=== PATIENT | female | born 1980 | race Caucasian/White ===

== ENCOUNTER → 2020-09-22 | Outpatient (CLI) | payer BC, SELFPAY ==
[2020-09-22 08:50] LABS: Absolute Lymphocyte Count 1.28 X10^3/uL (0.83-4.51); Absolute Neutrophil Count 2.9 X10^3/uL (2.0-7.7); Basophil# 0.04 X10^3/uL; Basophil% 0.9 % (0-1); Eosinophil# 0.07 X10^3/uL; Eosinophils% 1.5 % (0-5); Hematocrit 41.4 % (37-47); Hemoglobin 13.2 g/dL (12.0-15.0); Lymphocyte # 1.28 X10^3/ul (4.0); Lymphocyte % 27.2 % (19-41); Mean Corp Hgb Conc 31.9 g/dL (32-36); Mean Corpuscular Hgb 26.3 pg (27.0-32.0); Mean Corpuscular Volume 82.6 fL (81-99); Mean Platelet Vol. 10.3 fl (6.2-12.0); Monocyte# 0.36 X10^3/uL; Monocyte% 7.7 % (0-10); NRBC Flagged by Analyzer 0 % (0-5); Neutrophil # 2.92 X10^3/uL (2.7-7.7); Neutrophil % 62.1 % (47-70); Platelet Count 268 K/mm3 (150-450); RBC Distribution Width CV 13.9 % (11.6-14.6); RBC Distribution Width SD 41.9 fl (35.1-43.9); Red Blood Count 5.01 M/mm3 (4.2-5.4); White Blood Count 4.7 K/mm3 (4.4-11.0)
[2020-09-22 10:09] LABS: ALB/GLOB Ratio 0.9 RATIO (0.9-2.4); AST(SGOT) 16 U/L (15-37); Alanine Aminotransfer ALT/SGPT 26 U/L (13-56); Albumin, Serum 3.7 g/dL (3.2-5.0); Alkaline Phosphatase 89 U/L (45-117); Anion Gap 5 (5-15); BUN 9 mg/dL (7-18); BUN/Creat Ratio 12.5 RATIO (10-20); Calcium,Total 8.8 mg/dL (8.5-10.1); Chloride 105 mmol/L (98-107); Cholesterol 177 mg/dL (200); Creatinine, Serum 0.72 mg/dL (0.55-1.02); EST Glomerular Filtration Rate 95 mL/min (>60); Est Glom Filt Rate - Afr Amer 115 mL/min (>60); Estradiol 45.2 pg/mL; Globulin 4.1 g/dL (2.2-4.2); Glucose 87 mg/dL (74-106); High Density Lipoprotein 63 mg/dL; Potassium 3.9 mmol/L (3.5-5.1); Protein, Total 7.8 g/dL (6.4-8.2); Sodium Level 138 mmol/L (136-145); Thyroid Stim Hormone (TSH) 1.22 uIU/mL (0.358-3.74); Triglycerides 83 mg/dL; Very Low Density Lipoprotein 17 mg/dL (5-40)
== END | disposition home or self-care (01) ==
LOC: LAB 08:37 → LABSPEC 08:59
PROVIDERS: Referring Provider Nurse Practitioner Family; Visit Provider Nurse Practitioner Family
DX: N92.6 Irregular menstruation, unspecified (principal); Z13.220 Encounter for screening for lipoid disorders; Z13.1 Encounter for screening for diabetes mellitus; R79.89 Other specified abnormal findings of blood chemistry
CPT/HCPCS: 36415; 80053; 80061; 82670; 84403; 84443; 85025

== ENCOUNTER → 2020-10-09 14:07 | Outpatient (CLI) | payer BC, SELFPAY ==
--- NOTE | 2020-10-09 14:09 | US_ITS ---
STUDY: ULTRASOUND OF THE FEMALE PELVIS - COMPLETE REASON FOR EXAM: Female, 40 years old. IRREGULAR CYCLES -- FAMILY HX OF CERVICAL AND OV CA LMP: 08/22/2020. TECHNIQUE: Transabdominal and Transvaginal TECHNICAL QUALITY: Adequate. COMPARISON: None. FINDINGS: The uterus is anteverted and is in a midline position. The uterus measures 10.4 cm x 6.3 cm x 5 cm. There is a Nabothian cyst of the cervix. The endometrium measures 12 mm in thickness, and is hyperechoic. There is no demonstrated endometrial mass. There is no demonstrated myometrial mass. I.U.D. - The patient does not have an I.U.D. The right ovary is visualized. The right ovary measures 3.4 cm x 3 cm x 2.6 cm. There is no right ovarian cyst or ovarian mass. There is no visualized right adnexal mass or complex lesion. There is normal arterial and normal venous vascularity. The left ovary is visualized. The left ovary measures 3 cm x 3 cm x 2.6 cm. There is no left ovarian cyst or ovarian mass. There is no visualized left adnexal mass or complex lesion. There is normal arterial and normal venous vascularity. There is no fluid in the cul-de-sac. The pre void volume of the bladder was 277 ml. Polycystic ovary disease: No. US/Pelvic (Non ) IMPRESSION: Normal female pelvis. Electronically Signed: Lucio Montague MD at 15:23 EST , Service support ,
--- NOTE | 2020-10-09 14:11 | US_ITS ---
STUDY: ULTRASOUND OF THE FEMALE PELVIS - COMPLETE REASON FOR EXAM: Female, 40 years old. IRREGULAR CYCLES -- FAMILY HX OF CERVICAL AND OV CA LMP: 08/22/2020. TECHNIQUE: Transabdominal and Transvaginal TECHNICAL QUALITY: Adequate. COMPARISON: None. FINDINGS: The uterus is anteverted and is in a midline position. The uterus measures 10.4 cm x 6.3 cm x 5 cm. There is a Nabothian cyst of the cervix. The endometrium measures 12 mm in thickness, and is hyperechoic. There is no demonstrated endometrial mass. There is no demonstrated myometrial mass. I.U.D. - The patient does not have an I.U.D. The right ovary is visualized. The right ovary measures 3.4 cm x 3 cm x 2.6 cm. There is no right ovarian cyst or ovarian mass. There is no visualized right adnexal mass or complex lesion. There is normal arterial and normal venous vascularity. The left ovary is visualized. The left ovary measures 3 cm x 3 cm x 2.6 cm. There is no left ovarian cyst or ovarian mass. There is no visualized left adnexal mass or complex lesion. There is normal arterial and normal venous vascularity. There is no fluid in the cul-de-sac. The pre void volume of the bladder was 277 ml. Polycystic ovary disease: No. US/Transvaginal Non- IMPRESSION: Normal female pelvis. Electronically Signed: Lucio Montague MD at 15:23 EST , Service support ,
--- NOTE | 2020-10-09 15:04 | BI_ITS ---
MAMMOGRAPHY - BILATERAL SCREENING REASON FOR EXAM: Female, 40 years old. Routine annual screening examination. PERTINENT HISTORY: Grandmother with breast cancer. TECHNIQUE: Digital bilateral breast louise (3D mammographic acquisition) in the CC and MLO projections. 2-D mediolateral oblique (MLO) and craniocaudad (CC) views of both breasts were obtained. CAD: Full Field Digital Mammography with Computer Added Detection was performed. COMPARISON: None. Baseline examination. FINDINGS: Breast Composition: There are scattered areas of fibroglandular density. There are no dominant masses or suspicious calcifications. No other significant abnormalities are identified. BI/SCRN MAMM (CAD)W/LOUISE BILAT IMPRESSION: Negative screening mammogram. Yearly followup mammogram recommended. (A) ASSESSMENT CATEGORY: BIRADS Category 1: Negative. A letter regarding these results will be sent to the patient by the facility within 30 days. Approximately 10% of breast cancers are not detected by mammography. A normal mammogram should not delay biopsy of a clinically suspicious abnormality. [id number] Electronically Signed: Lucio Montague MD at 8:14 EST , Service support ,
== END ==
PROVIDERS: PCP Nurse Practitioner Family; Referring Provider Nurse Practitioner Family; Visit Provider Nurse Practitioner Family
DX: Z12.31 Encounter for screening mammogram for malignant neoplasm of breast (principal); N92.6 Irregular menstruation, unspecified; Z80.41 Family history of malignant neoplasm of ovary
CPT/HCPCS: 76830; 76856; 77063; 77067

== ENCOUNTER → 2021-01-16 07:59 | Outpatient (REF) | payer SELFPAY ==
[2021-01-16 09:07] LABS: Hepatitis B Surf AB - EMP Reactive
== END ==
LOC: EMPH 07:59
DX: Z00.00 Encounter for general adult medical examination without abnormal findings (principal)
CPT/HCPCS: 36415; 86706

== ENCOUNTER 2021-05-16 09:56 | Emergency (ER) | payer BC, SELFPAY ==
[2021-05-16 09:56] VITALS: BP 192/106; PULSE 73; RESP 18; TEMP 36.6; O2SAT 99; BMI 43.9
[2021-05-16 10:04] VITALS: BP 150/93; PULSE 82; RESP 19
--- NOTE | 2021-05-16 10:10 | EKG12_ITS ---
Test Reason : DIZZINESS Blood Pressure : / mmHG Vent. Rate : 077 BPM Atrial Rate : 077 BPM P-R Int : 142 ms QRS Dur : 140 ms QT Int : 448 ms P-R-T Axes : 044 074 026 degrees QTc Int : 506 ms Normal sinus rhythm with sinus arrhythmia Right bundle branch block Abnormal ECG Confirmed by ERAN KHANNA, JAVON ([id number]), tape editor MONROE REYNA ([id number]) on 05/21/2021 7:29:06 AM Referred By: ELIER Confirmed By:JAVON BARILLAS MD
--- NOTE | 2021-05-16 10:11 | EX.ED.DYSGE1 ---
HPI History of Present Illness Chief Complaint: Dizziness Informant: patient Narrative Narrative: Patient presents for evaluation of acute onset of lightheaded symptoms after going to break at 9:15 AM today. 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 Denies any syncopal episodes. States her last 2 days transient dull chest discomfort lasting seconds that would resolve had symptoms this morning. Occasional cough. Denied dyspnea palpitations orthopnea. Denies any past medical history. Denies family history of MIs at a young age. No tobacco history. States saw PCP a month ago for acute onset of darkened skin to the legs treated for cellulitis which is improving. No recent vomiting or diarrhea. No urinary symptoms. Denies history of stress test in the past. States symptoms currently resolving. Denies any spinning sensations. Prior similar symptoms: No PFSH PFSH Medical History no medical history Home Medications NK 05/16/21 [History Last Taken Unknown] Allergy/AdvReac Type Severity Reaction Status Date / Time No Known Allergies Allergy Verified 05/16/21 09:58 Family History no significant family his Surgical History no surgical history Social History Smoking Status: Former smoker ROS ROS ED Constitutional Constitutional ED: Denies chills, fever(s) or sweats Eyes Eyes: Denies change in vision ENT ENT ED: Denies dysphagia or sore throat Cardiovascular Cardiovascular: Reports chest pain; Denies leg edema, palpitations or racing heartbeat Respiratory/Chest Respiratory/Chest: Denies cough, dyspnea or dyspnea on exertion Gastrointestinal Gastrointestinal: Denies abdominal pain, diarrhea, nausea or vomiting Genitourinary Genitourinary ED: Denies dysuria, hematuria or urinary frequency Musculoskeletal Musculoskeletal: Denies back pain, extremity pain or neck pain Integumentary Denies rash or wounds Neurologic Neurologic: Denies headache(s), paresthesias or weakness EXAM Physical Exam Const Vital Signs: 05/16/21 09:56 05/16/21 10:04 05/16/21 10:13 Temperature 97.8 F Temperature Source Temporal Pulse Rate 73 82 Respiratory Rate 18 19 H Respiratory Effort Normal Non-Labored Respiratory Pattern Normal Blood Pressure 192/106 H 150/93 H Blood Pressure Mean 134 112 Pulse Ox 99 Oxygen Delivery Method Room Air Room Air Room Air 05/16/21 12:00 05/16/21 13:59 Temperature Temperature Source Pulse Rate 70 88 Respiratory Rate 18 17 Respiratory Effort Respiratory Pattern Blood Pressure 134/86 H 141/90 H Blood Pressure Mean 102 Pulse Ox 97 Oxygen Delivery Method Positive well nourished and well developed General Appearance ED: well developed and NAD HEENT Reports moist mucous membranes normocephalic and atraumatic Eyes PERRL, EOMs intact bilaterally and conjunctivae normal General Eye ED: Yes normal appearance of both eyes Neck no lymphadenopathy and supple General: Negative for tenderness Chest Wall Chest: Negative for tenderness Resp normal respiratory effort and normal air movement Effort and Inspection: symmetric chest movement; Negative for respiratory distress Cardio regular rate, regular rhythm and no murmurs Peripheral Pulses: pulses 2+ throughout GI normal to inspection, nondistended, normoactive bowel sounds and non-tender Palpation: Negative for guarding or rebound tenderness present Back/Spine no CVA tenderness and no thoracic nor lumbar tenderness Extremity normal to inspection Extremity Narrative: Minimal bilateral lower extremity edema pitting at the ankles. No calf tenderness. Pulses intact distally. General Extremety ED: Yes edema; Negative for tenderness General Extremity: edema Neuro oriented x3 and no sensory deficits noted Sensorium / Orientation: awake and alert Skin no rashes or lesions noted and no wounds MDM MDM MDM Narrative Medical decision making narrative: Patient had initially elevated blood pressure on arrival improved with reevaluation. Transient chest pains. Cardiac work-up negative exception for new EKG changes a right bundle branch block with T wave inversions anterior leads. There is no old for comparison. Patient high sensory troponin negative x2. Chest x-ray negative. Patient able to ambulate in the department with no return of symptoms. She will follow-up with her PCP for likely stress echocardiogram as an outpatient. All questions were answered. Return precautions. Lab Data Attestation: I reviewed the patient's lab results. Labs: Laboratory Results - last 24 hr 05/16/21 05/16/21 05/16/21 10:25 10:25 12:21 WBC 5.1 RBC 4.71 Hgb 12.6 Hct 39.8 MCV 84.5 MCH 26.8 L MCHC 31.7 L RDW Std Deviation 44.1 H RDW Coeff of Dinah 14.4 Plt Count 252 MPV 10.3 Immature Gran % (Auto) 0.800 Neut % (Auto) 62.2 Lymph % (Auto) 27.9 Benson % (Auto) 6.0 Eos % (Auto) 2.1 Baso % (Auto) 1.0 Absolute Neuts (auto) 3.2 Absolute Lymphs (auto) 1.43 Nucleated RBC % 0 Sodium 140 Potassium 3.7 Chloride 105 Carbon Dioxide 28.0 Anion Gap 7 BUN 9 Creatinine 0.67 Estim Creat Clear Calc 88.28 Est GFR (MDRD) Af Amer 125 Est GFR (MDRD) Non-Af 103 BUN/Creatinine Ratio 13.5 Glucose 143 H Calcium 8.7 Troponin I High Sens 7 6 Radiography Chest X-Ray - ED: 1 View, Read by ED Physician and Read by Radiologist Diagnostic Testing: Radiology Impression Chest X-Ray 05/16/21 10:35 IMPRESSION: Normal x-ray examination of the chest. Electronically Signed: Lucio Montague MD at 11:00 EDT , Service support , EKG Initial EKG: Attestation: I personally reviewed and interpreted this EKG as follows: Comments: Sinus rate of 77, no ST changes. T wave inversions anterior leads V2 V3, nonspecific T wave version leads III. Right bundle branch block. No old for comparison. Discharge Plan Triage Chief Complaint: Dizziness ED Provider: Baldemar Calle Dx/Rx/DC Orders Clinical Impression: Chest pain, Near syncope, Elevated blood pressure reading, RBBB Instructions: ED Chest Pain, Uncertain Cause, ED Near-Fainting, Uncertain Cause Prescriptions: No Action NK RF: 0 Primary Care Provider: Marleni Sargent NP Referrals: Marleni Sargent NP, STUDENT DRIVING INSTRUCTOR-C [Primary Care Provider] - 3-5 Days Activity Restrictions/Additional Instructions: Cardiac work-up negative with troponins. EKG noted new right bundle branch block with T wave inversions on anterior leads. Will need stress echocardiogram as an outpatient. Call your doctor to schedule. Return if any worsening symptoms. Disposition Disposition: Home, Self Care Discharge Date/Time: 05/16/21 13:59
--- NOTE | 2021-05-16 10:35 | RAD_ITS ---
STUDY: X-RAY CHEST REASON FOR EXAM: Female, 40 years old. Chest pain TECHNIQUE: Single AP portable view of the chest. COMPARISON: None. FINDINGS: EKG electrodes are seen. The lungs are clear and expanded. There is no demonstrated pleural abnormality. Normal size heart. Normal mediastinum and millicent. Normal visualized pulmonary arteries. Normal visualized aortic arch and descending thoracic aorta. Normal visualized thoracic spine. Normal visualized ribs, clavicles, and shoulders. There is no demonstrated abnormality of the visualized soft tissue structures of the upper abdomen. RAD/Chest 1 View (Portable) IMPRESSION: Normal x-ray examination of the chest. Electronically Signed: Lucio Montague MD at 11:00 EDT , Service support ,
[2021-05-16 10:38] LABS: Absolute Lymphocyte Count 1.43 X10^3/uL (0.83-4.51); Absolute Neutrophil Count 3.2 X10^3/uL (2.0-7.7); Basophil# 0.05 X10^3/uL; Eosinophil# 0.11 X10^3/uL; Eosinophils% 2.1 % (0-5); Hematocrit 39.8 % (37-47); Hemoglobin 12.6 g/dL (12.0-15.0); Lymphocyte # 1.43 X10^3/ul (0.83-4.51); Lymphocyte % 27.9 % (19-41); Mean Corp Hgb Conc 31.7 g/dL (32-36); Mean Corpuscular Hgb 26.8 pg (27.0-32.0); Mean Corpuscular Volume 84.5 fL (81-99); Mean Platelet Vol. 10.3 fl (6.2-12.0); Monocyte# 0.31 X10^3/uL; NRBC Flagged by Analyzer 0 % (0-5); Neutrophil # 3.19 X10^3/uL (2.7-7.7); Neutrophil % 62.2 % (47-70); Platelet Count 252 K/mm3 (150-450); RBC Distribution Width CV 14.4 % (11.6-14.6); RBC Distribution Width SD 44.1 fl (35.1-43.9); Red Blood Count 4.71 M/mm3 (4.2-5.4); White Blood Count 5.1 K/mm3 (4.4-11.0)
[2021-05-16 10:57] LABS: Anion Gap 7 (5-15); BUN 9 mg/dL (7-18); BUN/Creat Ratio 13.5 RATIO (10-20); Calcium,Total 8.7 mg/dL (8.5-10.1); Chloride 105 mmol/L (98-107); Creatinine, Serum 0.67 mg/dL (0.55-1.02); EST Glomerular Filtration Rate 103 mL/min (>60); Est Glom Filt Rate - Afr Amer 125 mL/min (>60); Estimated Creatinine Clearance 88.28 ml/min; Glucose 143 mg/dL (74-106); Potassium 3.7 mmol/L (3.5-5.1); Sodium Level 140 mmol/L (136-145); Troponin-I HS 7 pg/mL (3.0-54.0)
[2021-05-16 12:00] VITALS: BP 134/86; PULSE 70; RESP 18
[2021-05-16 12:45] LABS: Troponin-I HS 6 pg/mL (3.0-54.0)
[2021-05-16 13:59] VITALS: BP 141/90; PULSE 88; RESP 17; O2SAT 97
== END 2021-05-16 13:59 | disposition home or self-care (01) ==
PROVIDERS: Emergency Provider Emergency Medicine; PCP Nurse Practitioner Family
DX: R07.89 Other chest pain (principal); R55 Syncope and collapse; R03.0 Elevated blood-pressure reading, without diagnosis of hypertension; I45.10 Unspecified right bundle-branch block; Z87.891 Personal history of nicotine dependence
CPT/HCPCS: 71045; 80048; 84484; 85025; 93005; 99285; A4216

== ENCOUNTER 2021-07-30 05:39 | Emergency (ER) | payer BC, SELFPAY ==
[2021-07-30 05:40] VITALS: BP 160/98; PULSE 75; RESP 16; TEMP 37.1; O2SAT 99; BMI 46.3
--- NOTE | 2021-07-30 05:52 | RAD_ITS ---
STUDY: X-RAY CHEST REASON FOR EXAM: Female, 41 years old patient with cough. TECHNIQUE: Single AP portable view of the chest. COMPARISON: 05/16/2021. FINDINGS: The lungs are expanded with mild prominence of bronchovascular markings. There is no demonstrated pleural abnormality. There is mild cardiac enlargement. Normal mediastinum and millicent. There is prominence of the pulmonary hilar arteries with peripheral pulmonary vascular congestion. Normal visualized aortic arch and descending thoracic aorta. Normal visualized thoracic spine. Normal visualized ribs, clavicles, and shoulders. There is no demonstrated abnormality of the visualized soft tissue structures of the upper abdomen. RAD/Chest 1 View (Portable) IMPRESSION: Cardiomegaly and mild pulmonary vascular congestion. Electronically Signed: Criss White MD at 7:01 EST , Service support ,
--- NOTE | 2021-07-30 06:06 | EDS_ITS ---
HPI History of Present Illness Chief Complaint: General Illness Onset/Context/Timing Onset: Days Context: Gradual Onset Timing: Continuous Current Severity: Mild Maximum Severity: Mild Narrative Narrative: 41-year-old female no significant past medical history currently on no medications. Says she has been feeling well for about 9 days started last Friday. She had nasal congestion. She had a rapid Covid test that was negative on Friday. She denies any fever. States her had similar symptoms but he also tested negative. She is vaccinated. States that she is recently had decreased taste and smell. She went to be reevaluated. She denies vomiting or diarrhea. She denies fever. No shortness of breath. No hemoptysis. Nonproductive cough. Prior similar symptoms: No Recent Illness/Hospitalization: No PFSH PFSH Medical History Abnormal EKG RBBB Home Medications esomeprazole magnesium 20 mg capsule,delayed release 20 mg PO DAILY PRN 05/18/21 [History Last Taken Unknown] Allergy/AdvReac Type Severity Reaction Status Date / Time No Known Allergies Allergy Verified 07/30/21 05:42 Family History Other Cancer Diabetes Hypertension Social History Smoking Status: Former smoker alcohol intake: current details: occasional substance use type: does not use caffeine: Yes Type: coffee and tea ROS ROS ED ROS Narrative Cough. Decreased taste and smell. Review of Systems ROS Unobtainable: Denies due to encephalopathy Constitutional Constitutional ED: Denies chills or fever(s) Eyes Eyes: Denies change in vision ENT ENT ED: Reports rhinorrhea; Denies ear pain or sore throat Cardiovascular Cardiovascular: Denies chest pain Respiratory/Chest Respiratory/Chest: Denies dyspnea Gastrointestinal Gastrointestinal: Denies abdominal pain, constipation, diarrhea, nausea or vomiting Genitourinary Genitourinary ED: Denies dysuria Musculoskeletal Musculoskeletal: Denies myalgias Integumentary Denies rash Neurologic Neurologic: Denies headache(s) Psychiatric Psychiatric: Denies depression Endocrine Endocrinology: Denies polyuria Allergic/Immunologic Allergic/Immunologic ED: Denies urticaria EXAM Physical Exam Narrative Exam Narrative: 41-year-old female no acute distress vital signs stable afebrile. Pulse ox 9 9% on room air no signs of hypoxia. Patient does not look septic or toxic. HEENT exam unremarkable. Moist with memories. Neck nontender no lymphadenopathy. Lungs clear to auscultation bilaterally. Heart regular rhythm rate about 75 no murmur. Abdomen soft nontender normal bowel sounds no peritoneal signs. Moving all 4 extremities. Nontender no edema. Back nontender. Neurologically she is awake alert with no focal motor deficits. Const Vital Signs: 07/30/21 05:40 07/30/21 05:42 Temperature 98.7 F Temperature Source Temporal Pulse Rate 75 Respiratory Rate 16 Respiratory Effort Normal Blood Pressure 160/98 H Blood Pressure Mean 118 Pulse Ox 99 Oxygen Delivery Method Room Air Positive well nourished, well developed and obese; Negative for cachectic, contractures or unkempt General Appearance ED: well developed and NAD; Negative for unkempt, cachectic, contractures, cyanotic, diaphoretic or pallor Nutritional Appearance: obese; Negative for cachectic HEENT Reports moist mucous membranes Negative for trauma or tenderness Eyes PERRL and EOMs intact bilaterally Neck no lymphadenopathy, supple and no JVD General: Negative for tenderness Chest Wall inspection of chest normal and palpation of chest normal Resp normal respiratory effort and clear to auscultation bilaterally Effort and Inspection: Negative for pain with movement Auscultation: Negative for rales, rhonchi or wheezes Cardio regular rate, regular rhythm, S1 normal heart sound, S2 normal heart sound and no murmurs GI normal to inspection, nondistended, normoactive bowel sounds, non-tender, non- distended and no masses Inspection: Negative for abdominal distention Auscultation: normoactive bowel sounds Palpation: soft; Negative for tender, guarding or rebound tenderness present Back/Spine no CVA tenderness General Back: Negative for CVA tenderness Cervical Spine: Negative for cervical spine tenderness Extremity normal to inspection General Extremety ED: Negative for edema or tenderness General Extremity: Negative for edema Neuro oriented x3 Sensorium / Orientation: alert; Negative for orientation impaired, lethargic or stuporous Motor Exam: strength 5/5 throughout Psych mental status grossly normal Appearance: Negative for unkempt Attitude: No agitated Mood & Affect: Negative for depressed or tearful Skin no rashes or lesions noted and no wounds General Skin Exam: Negative for jaundice or pallor MDM MDM MDM Narrative Medical decision making narrative: Patient with viral syndrome type symptoms. Exam benign. Chest x-ray being obtained in a Covid PCR due to the length of time of her symptoms she is currently now day 10. Repeat exam at 6:35 AM patient is doing well. We went over her chest x-ray results which was negative. Her Covid results to be texted to her phone. It is a PCR. Lab Data Attestation: I reviewed the patient's lab results. Radiography Chest X-Ray - ED: 1 View, Read by ED Physician, Normal, Heart, Lungs, Mediastinum, Bony Structures and No Acute Disease Diagnostic Testing: Chest x-ray, portable, single view interpreted by myself shows no acute abnormality. Normal cardiac silhouette mediastinum. Discharge Plan Triage Chief Complaint: General Illness ED Provider: Chava Bates Dx/Rx/DC Orders Clinical Impression: Viral syndrome Prescriptions: No Action esomeprazole magnesium [Nexium] 20 mg capsule,delayed release(DR/EC) 20 mg PO DAILY PRNRF: 0 Primary Care Provider: Marleni Sargent NP Referrals: Marleni Sargent NP, OPERATIONAL ASSISTANT-C [Primary Care Provider] - 1 Week if not improving Activity Restrictions/Additional Instructions: Hospital will notify you via text on your phone your Covid results. Tylenol and Motrin as needed. Plenty of fluids and rest. Follow-up with your primary care provider if not improving. Disposition Disposition: Home, Self Care
--- NOTE | 2021-08-02 11:36 | ED.RN ---
PT CONTACTED TO INFORM HER THAT WE LOCATED HER [facility]. PT TO PICK IT UP ON FRIDAY. INFORMED WE WOULD LEAVE ON THE COUNTER AT THE CHARGE NURSE COMPUTER
== END 2021-07-30 07:04 | disposition home or self-care (01) ==
LOC: ED 06:24
PROVIDERS: Emergency Provider Emergency Medicine; PCP Nurse Practitioner Family
DX: B34.9 Viral infection, unspecified (principal); R09.81 Nasal congestion; Z87.891 Personal history of nicotine dependence
CPT/HCPCS: 71045; 87426; 99282

== ENCOUNTER 2021-10-08 12:52 | Outpatient (CLI) | payer BC, SELFPAY ==
--- NOTE | 2021-10-08 13:02 | ECHOCS_ITS ---
Reason For Study: Chest Pain Procedure This was a 2D Doppler, Color Flow transthoracic echocardiogram. The study was technically difficult. Contrast injection was performed. Exam performed in department. Left Ventricle Normal LV size. Left ventricular systolic function is normal. The estimated ejection fraction is 65 %. No evidence for diastolic dysfunction. No regional wall motion abnormalities noted. Right Ventricle Normal RV size. Normal systolic function. Atria The left atrium is mildly enlarged. Normal right atrium. No doppler evidence for ASD. Mitral Valve There is no mitral annular calcification. Normal mitral valve. Trivial mitral valve insufficiency. Tricuspid Valve Normal tricuspid valve. Trivial tricuspid valve insufficiency. Right ventricular systolic pressure estimated to be 24 mmHg. Aortic Valve Trisinus/trileaflet aortic valve. Normal aortic valve. Pulmonic Valve The pulmonic valve is not well visualized. Trivial pulmonic valve insufficiency. Great Vessels The aortic root is not well visualized. Pericardium/Pleural No pericardial effusion. Medication 22 gauge I.V. with prn adaptor inserted into right arm. Diluted definity 2ml given slow IV push to enhance endocardial definition. MMode/2D Measurements & Calculations LVIDd: 4.7 cm IVSd: 1.0 cm LA dimension: 3.7 cm LVIDs: 2.5 cm LVPWd: 1.1 cm RVDd: 3.5 cm FS: 45.5 % LAV(MOD-bp): 45.3 ml LA A4 area: 20.0 cm2 RA A4 area: 16.5 cm2 LAV(MOD-bp) Indexed: 22.3 ml/m2 LAV(MOD-sp2): 31.7 ml LAV(MOD-sp4): 61.7 ml Time Measurements MV dec time: 0.19 sec Doppler Measurements & Calculations MV E max papo: 127.9 cm/sec Lat Peak E' Papo: 10.9 cm/sec Med Peak E' Papo: 11.9 cm/sec MV A max papo: 75.6 cm/sec E/E' lat: 11.7 E/E' med: 10.7 MV E/A: 1.7 MV V2 max: 131.0 cm/sec MV P1/2t max papo: 131.9 cm/sec Ao V2 max: 142.5 cm/sec MV max P.9 mmHg MV P1/2t: 85.7 msec Ao max P.1 mmHg MV V2 mean: 69.6 cm/sec MV dec slope: 451.1 cm/sec2 MV mean P.3 mmHg MV V2 VTI: 34.8 cm MVA(P1/2t): 2.6 cm2 LV V1 max: 125.8 cm/sec PA V2 max: 116.5 cm/sec TR max papo: 229.6 cm/sec LV V1 max P.3 mmHg TR max P.1 mmHg ECHO/Echo Complete W/ Contrast Interpretation Summary The study was technically difficult. Contrast injection was performed. Left ventricular systolic function is normal. The estimated ejection fraction is 65 %. The left atrium is mildly enlarged. Trivial mitral valve insufficiency. Trivial tricuspid valve insufficiency. Trivial pulmonic valve insufficiency. Right ventricular systolic pressure estimated to be 24 mmHg. No evidence for diastolic dysfunction. Ordering Physician: Javed Diehl Referring Physician: Javed Diehl Performed By: Joni Ambrosio [facility]
== END 2021-10-08 23:59 | disposition home or self-care (01) ==
LOC: CVS 12:54
PROVIDERS: PCP Nurse Practitioner Family; Referring Provider Internal Medicine Cardiovascular Disease; Visit Provider Internal Medicine Cardiovascular Disease
DX: R07.9 Chest pain, unspecified (principal)
CPT/HCPCS: 93225; 93226; 93306; Q9957; A4216; C8929

== ENCOUNTER → 2022-12-11 | Outpatient (CLI) | payer BC, SELFPAY ==
[2022-12-17 14:09] LABS: HPV APTIMA, High Risk Negative (Negative)
== END | disposition home or self-care (01) ==
PROVIDERS: PCP Family Medicine; Referring Provider Registered Nurse; Visit Provider Registered Nurse
DX: Z01.419 Encounter for gynecological examination (general) (routine) without abnormal findings (principal)
CPT/HCPCS: 87624; 88175; G0145

== ENCOUNTER → 2022-12-13 | Outpatient (CLI) | payer BC, SELFPAY ==
[2022-12-13 12:56] LABS: Hemoglobin A1c 5.3 % (3.8-5.6)
[2022-12-13 13:17] LABS: T4 Free Direct 0.98 ng/dL (0.76-1.46); Thyroid Stim Hormone (TSH) 1.08 uIU/mL (0.358-3.74)
[2022-12-15 15:07] LABS: Testosterone Free 6.3 pg/mL (0.0-4.2)
== END | disposition home or self-care (01) ==
LOC: LABSPEC 11:50 → LAB 12:00
PROVIDERS: PCP Family Medicine; Referring Provider Registered Nurse; Visit Provider Registered Nurse
DX: E66.9 Obesity, unspecified (principal); R73.01 Impaired fasting glucose
CPT/HCPCS: 36415; 82627; 83036; 84402; 84439; 84443; 82626

== ENCOUNTER → 2022-12-18 | Outpatient (CLI) | payer BC, SELFPAY ==
--- NOTE | 2022-12-18 14:12 | BI_ITS ---
MAMMOGRAPHY - BILATERAL SCREENING REASON FOR EXAM: Female, 42 years old. Routine annual screening examination. PERTINENT HISTORY: Grandmother with breast cancer. TECHNIQUE: Digital bilateral breast louise (3D mammographic acquisition) in the CC and MLO projections. 2-D mediolateral oblique (MLO) and craniocaudad (CC) views of both breasts were obtained. CAD: Full Field Digital Mammography with Computer Added Detection was performed. COMPARISON: Comparison is made with prior study dated October 09, 2020. FINDINGS: Breast Composition: There are scattered areas of fibroglandular density. I suspect a 8.2 mm x 8.9 mm nodular density in the slightly inferior central portion of the right breast. Correlation with ultrasound is recommended. Stable small benign appearing bilateral axillary No other significant abnormalities are identified. BI/SCRN MAMM (CAD)W/LOUISE BILAT IMPRESSION: Questionable 8.2 mm x 8.9 mm nodular density in the slightly inferior central portion of the right breast. Correlation with ultrasound is recommended. ASSESSMENT CATEGORY: BIRADS Category 0: Incomplete. Need additional imaging evaluation. A letter regarding these results will be sent to the patient by the facility within 30 days. Approximately 10% of breast cancers are not detected by mammography. A normal mammogram should not delay biopsy of a clinically suspicious abnormality. [id number] Electronically Signed: Lucio Montague MD at 15:19 EDT ,
== END | disposition home or self-care (01) ==
LOC: OPBI 14:10
PROVIDERS: PCP Family Medicine; Referring Provider Registered Nurse; Visit Provider Registered Nurse
DX: Z12.31 Encounter for screening mammogram for malignant neoplasm of breast (principal); Z80.3 Family history of malignant neoplasm of breast
CPT/HCPCS: 77063; 77067

== ENCOUNTER → 2022-12-19 | Outpatient (CLI) | payer BC, SELFPAY ==
--- NOTE | 2022-12-19 14:04 | US_ITS ---
STUDY: ULTRASOUND BREAST - RIGHT REASON FOR EXAM: Female, 42 years old. Abnormal screening mammogram. TECHNIQUE: Axial and longitudinal images of the RIGHT breast were performed with a high resolution ultrasound transducer. # OF IMAGES: 31 COMPARISON: Comparison is made with prior mammogram dated December 18, 2022 and December 19, 2022. FINDINGS: RIGHT Breast: The inferior half of the breast was examined with ultrasound. A cluster of small cysts is seen at the 6:00 position of the breast at 1 cm from the nipple. US/Breast Limited Unilateral IMPRESSION: Findings suggestive of a cluster of small cysts at the 6:00 position in the breast at 1 cm from the nipple. ASSESSMENT CATEGORY: BIRADS Category 2: Benign. A letter regarding these results will be sent to the patient by the facility within 30 days. Electronically Signed: Lucio Montague MD at 10:50 EDT ,
--- NOTE | 2022-12-19 14:48 | BI_ITS ---
MAMMOGRAPHY - UNILATERAL DIAGNOSTIC: RIGHT BREAST REASON FOR EXAM: Female, 42 years old. Abnormal screening mammogram. PERTINENT HISTORY: Grandmother with breast cancer. TECHNIQUE: Compression spot views of the right breast were obtained. CAD: Full Field Digital Mammography with Computer Added Detection was performed. COMPARISON: Comparison is made with prior study December 18, 2022. FINDINGS: Breast Composition: There are scattered areas of fibroglandular density. The previously seen questionable nodular density is not as well seen at this time. No other significant abnormalities are identified. BI/DIAG MAMM W/CAD, UNILAT IMPRESSION: Negative unilateral diagnostic mammogram. Yearly followup mammogram recommended. (A) ASSESSMENT CATEGORY: BIRADS Category 1: Negative. A letter regarding these results will be sent to the patient by the facility within 30 days. Approximately 10% of breast cancers are not detected by mammography. A normal mammogram should not delay biopsy of a clinically suspicious abnormality. Electronically Signed: Lucio Montague MD at 15:34 EDT ,
== END | disposition home or self-care (01) ==
LOC: OPUS 14:02
PROVIDERS: PCP Family Medicine; Referring Provider Registered Nurse; Visit Provider Registered Nurse
DX: N63.14 Unspecified lump in the right breast, lower inner quadrant (principal)
CPT/HCPCS: 76642; 77065

== ENCOUNTER → 2023-03-06 | Outpatient (CLI) | payer BC, SELFPAY ==
[2023-03-06 14:51] LABS: Vitamin D,25 Hydroxy 35.5 ng/mL
== END | disposition home or self-care (01) ==
PROVIDERS: PCP Family Medicine; Referring Provider Obstetrics & Gynecology; Visit Provider Obstetrics & Gynecology
DX: R94.31 Abnormal electrocardiogram [ECG] [EKG] (principal); Z13.21 Encounter for screening for nutritional disorder; E66.8 Other obesity
CPT/HCPCS: 36415; 82306; 93005

== ENCOUNTER → 2023-05-21 | Outpatient (CLI) | payer BC, SELFPAY ==
[2023-05-21 11:13] LABS: Anion Gap 6 (5-15); BUN 10 mg/dL (7-18); Calcium,Total 9.2 mg/dL (8.5-10.1); Chloride 105 mmol/L (98-107); Creatinine, Serum 0.63 mg/dL (0.55-1.02); EST Glomerular Filtration Rate 111 mL/min (>60); Est Glom Filt Rate - Afr Amer 134 mL/min (>60); Glucose 94 mg/dL (74-106); Potassium 4.1 mmol/L (3.5-5.1); Sodium Level 137 mmol/L (136-145)
--- NOTE | 2023-05-21 19:18 | STRESSREP_ITS ---
Stress Test Report Exercise myocardial perfusion stress test. 42-year-old lady with a history of abnormal EKG Stress protocol: Resting EKG demonstrates normal sinus rhythm with an incomplete right bundle branch block and a heart rate of 73 bpm resting blood pressure is 124/82 mmHg. The patient exercised according to the regular Andrea protocol for a total du ration of 7 minutes and 30 seconds attaining a maximum heart rate of 169 bpm which was 94% of maximum predicted heart rate; the maximum workload was 10.4 metabolic equivalents. At rest there were no ST or T wave changes noted to suggest ischemia and at peak exercise upsloping ST changes only were noted which did not meet the criteria for ischemia. No clinical angina was noted the test was terminated due to the target heart rate being achieved/fatigue. The peak blood pressure was 198/94 mmHg. Rate-pressure product was 29,000. Myocardial perfusion protocol. 14.1 mCi of technetium 99m sestamibi was injected at rest. The patient exercised according to regular Andrea protocol for total duration of 7 minutes and 30 seconds and at peak exercise 44.3 mCi of technetium 99m sestamibi was injected stress images were obtained stress and rest images were reconstructed in comparing the short axis vertical long and horizontal long axis. Gated images were also obtained. Perfusion SPECT analysis: Review of the stress images demonstrate normal uptake of tracer noted in all areas of the myocardium. The resting images similarly demonstrate normal uptake of tracer noted in all areas of the myocardium. No areas of reversibility are noted to suggest ischemia no previous infarct was noted. Gated SPECT analysis: The gated ejection fraction is 71%. Conclusion: Normal exercise myocardial perfusion stress test at a high workload Preserved ejection fraction.
== END | disposition home or self-care (01) ==
LOC: CVS 07:02
PROVIDERS: PCP Family Medicine; Referring Provider Nurse Practitioner Gerontology; Visit Provider Nurse Practitioner Gerontology
DX: R94.31 Abnormal electrocardiogram [ECG] [EKG] (principal); I45.10 Unspecified right bundle-branch block
CPT/HCPCS: 36415; 78452; 80048; 93017; A9500; A4216

== ENCOUNTER 2024-02-16 13:42 | Outpatient (CLI) | payer BC, SELFPAY ==
[2024-02-16 14:36] LABS: ALB/GLOB Ratio 0.9 RATIO (0.9-2.4); AST(SGOT) 11 U/L (15-37); Alanine Aminotransfer ALT/SGPT 19 U/L (13-56); Albumin, Serum 3.6 g/dL (3.2-5.0); Alkaline Phosphatase 75 U/L (45-117); Anion Gap 6 (5-15); BUN 15 mg/dL (7-18); BUN/Creat Ratio 18.2 RATIO (10-20); Chloride 108 mmol/L (98-107); Creatinine, Serum 0.82 mg/dL (0.55-1.02); EST Glomerular Filtration Rate 80 mL/min (>60); Est Glom Filt Rate - Afr Amer 97 mL/min (>60); Glucose 89 mg/dL (74-106); Potassium 3.6 mmol/L (3.5-5.1); Protein, Total 7.6 g/dL (6.4-8.2); Sodium Level 139 mmol/L (136-145); Vitamin D,25 Hydroxy 26.3 ng/mL
== END 2024-02-16 23:59 | disposition home or self-care (01) ==
PROVIDERS: PCP Family Medicine; Visit Provider Nurse Practitioner Family
DX: E66.8 Other obesity (principal); Z68.41 Body mass index [BMI] 40.0-44.9, adult
CPT/HCPCS: 36415; 80053; 82306

== ENCOUNTER → 2024-03-31 | Outpatient (CLI) | payer BC, SELFPAY ==
[2024-03-31 10:37] LABS: T4 Free Direct 0.91 ng/dL (0.76-1.46); Thyroid Stim Hormone (TSH) 0.826 uIU/mL (0.358-3.740)
== END | disposition home or self-care (01) ==
PROVIDERS: PCP Family Medicine; Referring Provider Nurse Practitioner Family; Visit Provider Nurse Practitioner Family
DX: E28.2 Polycystic ovarian syndrome (principal); N93.9 Abnormal uterine and vaginal bleeding, unspecified
CPT/HCPCS: 84439; 84443

== ENCOUNTER → 2024-04-01 | Outpatient (CLI) | payer BC, SELFPAY ==
--- NOTE | 2024-04-01 12:52 | EKG12_ITS ---
Test Reason : MEDICATION/ROUTINE Blood Pressure : / mmHG Vent. Rate : 068 BPM Atrial Rate : 068 BPM P-R Int : 132 ms QRS Dur : 138 ms QT Int : 432 ms P-R-T Axes : 023 052 007 degrees QTc Int : 459 ms Normal sinus rhythm Right bundle branch block Abnormal ECG Confirmed by Paul Stewart ([id number]), publications editor ZAINA RICHARDSON ([id number]) on 04/05/2024 9:57:21 AM Referred By: Julee Miller Confirmed By:Paul Stewart
== END | disposition home or self-care (01) ==
LOC: PSN 12:52
PROVIDERS: PCP Family Medicine; Referring Provider Nurse Practitioner Family; Visit Provider Nurse Practitioner Family
DX: I45.10 Unspecified right bundle-branch block (principal); I10 Essential (primary) hypertension
CPT/HCPCS: 93005

== ENCOUNTER → 2024-09-28 | Outpatient (CLI) | payer BC, SELFPAY ==
[2024-09-28 06:44] LABS: ALB/GLOB Ratio 0.9 RATIO (0.9-2.4); AST(SGOT) 9 U/L (15-37); Alanine Aminotransfer ALT/SGPT 15 U/L (13-56); Albumin, Serum 3.4 g/dL (3.2-5.0); Alkaline Phosphatase 65 U/L (45-117); Globulin 3.7 g/dL (2.2-4.2); Protein, Total 7.1 g/dL (6.4-8.2)
[2024-09-28 09:17] LABS: Vitamin D,25 Hydroxy 19.6 ng/mL
[2024-09-28 10:13] LABS: Hemoglobin A1c 5.3 % (3.8-5.6)
== END | disposition home or self-care (01) ==
LOC: LAB 05:34
PROVIDERS: PCP Family Medicine; Visit Provider Obstetrics & Gynecology
DX: E66.89 Other obesity not elsewhere classified (principal)
CPT/HCPCS: 82040; 82247; 82306; 83036; 84075; 84155; 84443; 84450; 84460

== ENCOUNTER → 2025-05-30 | Outpatient (CLI) | payer BC, SELFPAY ==
--- NOTE | 2025-05-30 14:30 | BI_ITS ---
EXAM: SCRN MAMM (CAD)W/LOUISE BILAT DATE: 05/30/2025 CLINICAL HISTORY: F, Age 44 y/o , SCREEN FOR BREAST CANCER TECHNIQUE: Procedure Code: [id number] Modality: MG Procedure: SCRN MAMM (CAD)W/LOUISE BILAT COMPARISON: Prior exam(s) dated mammogram dated 12/18/2022 and 10/09/2020. FINDINGS: TISSUE DENSITY: There are scattered areas of fibroglandular density. Bilateral Breast Mammographic Findings: No significant masses, calcifications or other abnormalities are identified. Benign-appearing round microcalcifications are seen in both breasts. BI/SCRN MAMM (CAD)W/LOUISE BILAT IMPRESSION: Benign screening mammogram OVERALL FINAL ASSESSMENT BI-RADS 2: BENIGN RECOMMENDATION: Routine annual follow-up in 1 Year Additional Recommendation none A letter with findings and recommendations will be mailed to the patient. Reading Location: [id number]
== END | disposition home or self-care (01) ==
LOC: OPBI 14:21
PROVIDERS: PCP Family Medicine; Referring Provider Nurse Practitioner Family; Visit Provider Nurse Practitioner Family
DX: Z12.31 Encounter for screening mammogram for malignant neoplasm of breast (principal)
CPT/HCPCS: 77063; 77067

== ENCOUNTER → 2025-06-16 | Outpatient (CLI) | payer BC, SELFPAY ==
[2025-06-16 09:51] LABS: Hematocrit 39.0 % (37-47); Hemoglobin 12.9 g/dL (12.0-15.0); Immature Granulocytes Count 0.030 X10^3/uL (0.0-0.0); Mean Corp Hgb Conc 33.1 g/dL (32-36); Mean Corpuscular Volume 82.5 fL (81-99); Mean Platelet Vol. 10.5 fl (6.2-12.0); NRBC Flagged by Analyzer 0 % (0-5); Platelet Count 281 K/mm3 (150-450); RBC Distribution Width CV 14.6 % (11.6-14.6); RBC Distribution Width SD 43.7 fl (35.1-43.9); Red Blood Count 4.73 M/mm3 (4.2-5.4); White Blood Count 5.8 K/mm3 (4.4-11.0)
[2025-06-16 11:16] LABS: AST(SGOT) 17 U/L (<=31); Alanine Aminotransfer ALT/SGPT 13 U/L (<=34); Albumin, Serum 4.3 g/dL (3.5-5.0); Alkaline Phosphatase 63 U/L (35-104); Anion Gap 10 (5-15); BUN 13 mg/dL (4-19); BUN/Creat Ratio 16.6 RATIO (10-20); Calcium,Total 9.3 mg/dL (7.6-11.0); Carbon Dioxide 22.2 mmol/L (21.0-32.0); Chloride 105 mmol/L (98-108); Globulin 2.9 g/dL (2.2-4.2); Glucose 88 mg/dL (70-99); Potassium 4.2 mmol/L (3.3-5.1)
== END | disposition home or self-care (01) ==
PROVIDERS: PCP Family Medicine; Referring Provider Nurse Practitioner Family; Visit Provider Nurse Practitioner Family
DX: R53.83 Other fatigue (principal)
CPT/HCPCS: 36415; 80053; 85025